=== PATIENT | female | born 1980 | race Caucasian/White ===

== ENCOUNTER 2021-02-14 15:03 | Emergency (ER) | payer BC ==
[2021-02-14 15:30] VITALS: BP 139/93; PULSE 118
--- NOTE | 2021-02-14 15:44 | EDM.PDOC ---
ED HPI GENERAL MEDICAL PROBLEM - General Chief Complaint: Respiratory Problem Stated Complaint: SHORTNESS OF BREATH Time Seen by Provider: 02/14/21 15:44 Source of Information: Reports: Patient, RN Notes Reviewed History Limitations: Reports: No Limitations - History of Present Illness INITIAL COMMENTS - FREE TEXT/NARRATIVE: [place] presents today with complaints of worsening cough, feeling tired, wheezing and shortness of breath with activity for the past 7 days. She reports she also has sinus pain, congestion and post nasal drip with many seasonal allergies and chronic rhinitis. she has tried use of OTC medications and treatments without improvement. She denies fever, chills, nausea, vomiting, change in bowel/bladder function. - Related Data Allergies Allergy/AdvReac Type Severity Reaction Status Date / Time No Known Allergies Allergy Verified 02/14/21 15:33 Home Meds: Home Meds Levocetirizine Dihydrochloride [Allergy Relief] 1 tab PO DAILY 02/14/21 [History] Montelukast Sodium [Singulair] 10 mg PO DAILY 02/14/21 [History] Past Medical History - Past Health History Medical/Surgical History: Denies Medical/Surgical History Social & Family History - Tobacco Use Tobacco Use Status *Q: Current Every Day Tobacco User Years of Tobacco use: 10 Packs/Tins Daily: 0.5 ED ROS GENERAL - Review of Systems Review Of Systems: See Below Constitutional: Reports: Malaise. Denies: Fever, Chills, Weakness, Fatigue, Night Sweats, Diaphoresis HEENT: Reports: Ear Pain, Rhinitis, Sinus Problem. Denies: Dental Pain, Ear Discharge, Eye Discharge, Eye Pain, Hearing Loss, Nose Pain, Throat Pain, Throat Swelling, Vertigo, Vision Change Respiratory: Reports: Shortness of Breath (with activity), Wheezing, Cough. Denies: Pleuritic Chest Pain, Sputum, Hemoptysis Cardiovascular: Reports: Dyspnea on Exertion. Denies: Chest Pain, Claudication, Edema, Lightheadedness, Palpitations, PND, Syncope GI/Abdominal: Reports: No Symptoms : Reports: No Symptoms Musculoskeletal: Reports: No Symptoms Skin: Reports: No Symptoms Neurological: Reports: No Symptoms Psychiatric: Reports: No Symptoms Hematologic/Lymphatic: Reports: No Symptoms Immunologic: Reports: No Symptoms ED EXAM, GENERAL - Physical Exam Exam: See Below Exam Limited By: No Limitations General Appearance: Alert, WD/WN, No Apparent Distress Ears: Normal Canal, Hearing Grossly Normal Ear Exam: Right Ear: TM Dull (retracted, tender), Left Ear: TM normal Nose: No: Nasal Tenderness, Nasal Deformity, Nasal Swelling, Nasal Drainage, Nasal Flaring Throat/Mouth: Normal Inspection, Normal Lips, Normal Teeth, Normal Gums, Normal Oropharynx, Normal Voice, No Airway Compromise, Other (postnasal drip) Head: Atraumatic, Normocephalic Neck: Normal Inspection, Supple, Non-Tender, Full Range of Motion. No: Lymphadenopathy (R), Lymphadenopathy (L) Respiratory/Chest: No Accessory Muscle Use, Chest Non-Tender, Decreased Breath Sounds, Rhonchi, Wheezing. No: Crackles, Rales, Stridor, Pleural Rub, Accessory Muscle Use, Retractions, Splinting, Prolonged Expiration Cardiovascular: Normal Peripheral Pulses, Regular Rate, Rhythm, No Edema, No Gallop, No Murmur, No Rub Back Exam: Normal Inspection, Full Range of Motion. No: CVA Tenderness (R), CVA Tenderness (L) Extremities: Normal Inspection, Normal Range of Motion, Non-Tender, No Pedal Edema, Normal Capillary Refill Neurological: Alert, Oriented, Normal Cognition, Normal Gait Psychiatric: Normal Affect, Normal Mood Skin Exam: Warm, Dry, Intact, Normal Color, No Rash Lymphatic: No Adenopathy Course - Vital Signs Last Recorded V/S: Last Vital Signs Temp 36.6 C 02/14/21 15:39 Pulse 118 H 02/14/21 15:39 Resp 16 02/14/21 15:39 BP 139/93 H 02/14/21 15:39 Pulse Ox 92 L 02/14/21 15:39 - Orders/Labs/Meds Meds: Medications Discontinued Medications Generic Name Dose Route Start Last Admin Trade Name Freq PRN Reason Stop Dose Admin Albuterol/Ipratropium 3 ml 02/14/21 16:03 02/14/21 16:10 Albuterol/Ipratropium 3.0-0.5 Mg/3 Ml Neb Soln NEB 02/14/21 16:04 3 ml ONETIME ONE Administration Departure - Departure Time of Disposition: 16:50 Disposition: Home, Self-Care 01 Condition: Good Clinical Impression: Acute sinus infection, Upper respiratory infection, Asthma - Discharge Information Instructions: Sinusitis, Adult, [id number], Upper Respiratory Infection, Adult, [id number] Referrals: PCP,None [Primary Care Provider] - Forms: ED Department Discharge Additional Instructions: You have been evaluated and treated for asthma, sinusitis and upper respiratory infection. Usual course for you would be azithromycin x two courses. We will treat with levaquin 750mg by mouth daily for 7 days for sinusitis and respiratory infection in the setting of asthma, significant history of allergies, triggers, ongoing cough and shortness fo breath. Please also take prednisone 40mg by mouth daily for 5 days to help with asthma and breathing. Use albuterol and albuterol nebs as directed. Take ibuprofen and tylenol as needed for pain/fever. Return for any worsening, SOB or other concerns. Follow up with a recheck in 3 to 7 days. Consider PFTs, pulmonology for ongoing asthma, need for daily inhalers. Sepsis Event Note (ED) - Evaluation Sepsis Screening Result: No Definite Risk - Focused Exam Vital Signs: Vital Signs Temp Pulse Resp BP Pulse Ox 02/14/21 15:39 36.6 C 118 H 16 139/93 H 92 L 02/14/21 15:29 36.6 C 118 H 16 139/93 H 92 L - Assessment/Plan Assessment:: Acute sinus infection, Upper respiratory infection, Asthma Asthma not well controlled, ongoing cough, signs of sinusitis and URI. Patient declines lab/x-ray, vital signs stable. She will be treated with levaquin, prednisone, albuterol inhaler, neb as well as ipratropium nebs. Breathing improved with duo-neb, increased air flow. [place] is in agreement with plan. She will follow up with her primary provider for recheck and return for any worsening, issues or concerns. She is advised that her primary may want to do PFTs, refer to pulmonology if needed. Plan: Patient evaluated and treated for asthma, sinusitis and upper respiratory infection. Usual course for her would be azithromycin x two courses. We will treat with levaquin 750mg by mouth daily for 7 days for sinusitis and respiratory infection in the setting of asthma, significant history of allergies, triggers, ongoing cough and shortness fo breath with stable vital signs and no signs of sepsis. Please also take prednisone 40mg by mouth daily for 5 days to help with asthma and breathing. Use albuterol and albuterol nebs as directed. Take ibuprofen and tylenol as needed for pain/fever. Return for any worsening, SOB or other concerns. Follow up with a recheck in 3 to 7 days. Consider PFTs, pulmonology for ongoing asthma, need for daily inhalers.
[2021-02-14] MEDS ORDERED: Albuterol/Ipratropium 3.0-0.5 MG/3 ML Neb Soln NEB ONE (16:03)
== END 2021-02-14 17:01 | disposition home or self-care (01) ==
LOC: JP.ED 15:03
DX: J45.909 Unspecified asthma, uncomplicated (principal); J06.9 Acute upper respiratory infection, unspecified; J01.90 Acute sinusitis, unspecified; Z72.0 Tobacco use
CPT/HCPCS: 94640; 99284-25; J7620-GY

== ENCOUNTER 2023-01-28 12:27 | Emergency (ER) | payer BC ==
[2023-01-28] MEDS ORDERED: Albuterol/Ipratropium 3.0-0.5 MG/3 ML Neb Soln NEB ONE (14:27)
[2023-01-28 14:28] LABS: HEMATOCRIT 44.4 % (34.3-46.0); HEMOGLOBIN 15.4 g/dL (11.2-15.5); MEAN CORPUSCULAR HEMOGLOBIN 33.8 pg (31.6-35.5); MEAN CORPUSCULAR HGB CONC 34.7 g/dL (31.6-35.5); MEAN CORPUSCULAR VOLUME 97.4 fL (81.4-99.0); RED BLOOD CELL COUNT 4.56 M/uL (3.77-5.24); WHITE BLOOD CELL COUNT,WBC 11.9 K/uL (3.2-11.0)
[2023-01-28 14:29] LABS: BASE EXCESS VENOUS 2.7 mm/L; BICARBONATE,VENOUS 27.1 mmol/L; CARBOXYHEMOGLOBIN 5.2 % (0.0-1.6); METHEMOGLOBIN 0.8 %; O2 SATURATION VENOUS 59.5; OXYHEMOGLOBIN 55.9 %; PCO2 VENOUS 42.9 mm/Hg; PH,VENOUS 7.417 (7.350-7.450); TOTAL HEMOGLOBIN 15.7 g/dL (12.0-16.0)
[2023-01-28 14:31] LABS: PO2 VENOUS 32.9 mm/Hg
[2023-01-28 14:59] LABS: A/G RATIO 1.1 (1.2-2.2); ALANINE AMINOTRANSFERASE,ALT 20 U/L (12-78); ALBUMIN 3.7 g/dL (3.4-5.0); ALKALINE PHOSPHATASE 44 U/L (46-116); ASPARTATE AMNIOTRANSFERASE,AST 16 U/L (15-37); BILIRUBIN TOTAL 0.4 mg/dL (0.2-1.0); BLOOD UREA NITROGEN,BUN 4 mg/dL (7-18); CALCIUM 8.8 mg/dL (8.5-10.1); CARBON DIOXIDE,CO2 28 mmol/L (21-32); CHLORIDE,CL 103 mmol/L (100-108); CREATININE 0.6 mg/dL (0.6-1.0); EST CRCL DRUG DOSING (CG) 98.98 mL/min; ESTIMATED GFR 113 mL/min (>60); GLUCOSE RANDOM 80 mg/dL (74-106); PRO B-TYPE NATRIUR PEPT,BNPPRO 42 pg/mL (5-125); PROTEIN TOTAL,TP 7.2 g/dL (6.4-8.2); SODIUM,NA 139 mmol/L (140-148)
[2023-01-28 15:08] VITALS: BP 121/73; PULSE 85
== END 2023-01-28 15:43 | disposition home or self-care (01) ==
LOC: JP.ED 12:27
DX: J45.41 Moderate persistent asthma with (acute) exacerbation (principal); Z72.0 Tobacco use; Z91.048 Other nonmedicinal substance allergy status; Z79.51 Long term (current) use of inhaled steroids
CPT/HCPCS: 36415; 71046; 71046-26; 80053; 82803; 83605; 83880; 84145; 85027; 85379; 94640; 99284; 99285; J7620; U0002